=== PATIENT | male | born 1990 | race Caucasian/White ===

== ENCOUNTER 2018-05-19 13:42 | Emergency (ER) | payer SELFPAY ==
[2018-05-19 13:52] VITALS: BP 123/72
--- NOTE | 2018-05-19 15:30 | ER Document Report ---
HPI - HPI Patient complains to provider of: Medication refill Time Seen by Provider: 05/19/18 14:52 Onset: This afternoon Onset/Duration: Sudden Quality of pain: No pain Severity: None Pain Level: 0 Context: Patient is a 19-year-old male who comes emergency room today requesting a refill of his psych medications. Patient states that he had a sudden pop up of a job interview and training for first thing tomorrow morning last all day in [facility] and his psych appointment was for the same day and time so hard to keep his job he needed to cancel in the next available appointment was June 14. He has 2 more days left on his medications. He has no complaints other than that at this time. He has no other medical history. He denies any suicidal or homicidal ideations. Associated Symptoms: None Exacerbated by: Denies Relieved by: Denies Similar symptoms previously: No Recently seen / treated by doctor: No - ROS ROS below otherwise negative: Yes Systems Reviewed and Negative: Yes All other systems reviewed and negative - EENT EENT: DENIES: Sore Throat, Ear Pain, Nasal Drainage-Clear, Nasal Drainage- Purulent, Congestion, Eye problems - NEURO Neurology: DENIES: Headache, Weakness, Vision blurred, Dizzinesss / Vertigo - CARDIOVASCULAR Cardiovascular: DENIES: Chest pain - RESPIRATORY Respiratory: DENIES: Trouble Breathing, Coughing - GASTROINTESTINAL Gastrointestinal: DENIES: Abdominal Pain, Nausea, Patient vomiting, Diarrhea, Constipation, Black / Bloody Stools - URINARY Urinary: DENIES: Dysuria, Urgency, Frequency - REPRODUCTIVE Reproductive: DENIES: :, Postmenopausal, Abnormal bleeding / discharge - MUSCULOSKELETAL Musculoskeletal: DENIES: Extremity pain, Back Pain - DERM Skin Color: Normal, Calvary Skin Problems: None Past Medical History - General Information source: Patient - Social History Smoking Status: Never Smoker Cigarette use (# per day): No Chew tobacco use (# tins/day): No Smoking Education Provided: No Frequency of alcohol use: None Drug Abuse: None Family History: Reviewed & Not Pertinent Patient has suicidal ideation: No Patient has homicidal ideation: No Renal/ Medical History: Denies: Hx Peritoneal Dialysis Psychiatric Medical History: Reports: Hx Bipolar Disorder Past Surgical History: Reports: Hx Abdominal Surgery Vertical Provider Document - CONSTITUTIONAL Agree With Documented VS: Yes Exam Limitations: No Limitations General Appearance: WD/WN, No Apparent Distress - INFECTION CONTROL TRAVEL OUTSIDE OF THE .S. IN LAST 30 DAYS: No - HEENT HEENT: Atraumatic, Normocephalic, PERRLA - NECK Neck: Normal Inspection, Supple - RESPIRATORY Respiratory: Breath Sounds Normal, No Respiratory Distress. negative: Rales, Rhonchi, Wheezing - CARDIOVASCULAR Cardiovascular: Regular Rate - GI/ABDOMEN Gastrointestinal: Abdomen Soft, Abdomen Non-Tender - REPRODUCTIVE Male Genitalia: negative: Normal Inspection, Abnormal Inspection - BACK Back: Normal Inspection - MUSCULOSKELETAL/EXTREMETIES Musculoskeletal/Extremeties: FROM, Non-Tender - NEURO Level of Consciousness: Awake, Alert, Appropriate Motor/Sensory: No Motor Deficit - DERM Integumentary: Warm, Dry, No Rash Course - Re-evaluation Re-evalutation: 05/19/18 15:28 I had mental health results with him and advised me the patient is responsible and that he is trying to better his life by having a job and they had scheduled for his work training in [facility] for tomorrow which was a scheduled appointment for his review and mental health meds. He has rescheduled for June 14 and she has confirmed this for me. So I have no problem in writing patient in the medication to last him until 15 June. He is requesting Lamictal, Cymbalta, gabapentin, and trazodone. - Vital Signs Vital signs: Temp Pulse Resp BP Pulse Ox 98.1 F 74 16 123/72 96 05/19/18 13:51 05/19/18 13:51 05/19/18 13:51 05/19/18 13:51 05/19/18 13:51 Discharge - Discharge Clinical Impression: Medication refill Disposition: HOME, SELF-CARE Additional Instructions: As we discussed you have an appointment set for June 14, 2018 for reevaluation and refill your medication by the mental health. Please keep that appointment. I will refill your medication at this time until the of the month. Should you have any concerns or problems return to ER for recheck. Prescriptions: Duloxetine HCl [Cymbalta] 60 mg PO DAILY #30 capsule. Gabapentin 600 mg PO DAILY #30 tablet Lamotrigine [Lamictal] 100 mg PO DAILY #30 tablet Trazodone HCl [Desyrel] 150 mg PO HSP PRN #30 tablet PRN Reason: Referrals: Mental Health [Provider Group] - Follow up as needed
--- NOTE | 2018-05-19 15:39 | PSYCHOLOGICAL NOTE ---
Psych Note - Psych Note Date seen by psych provider: 05/19/18 Time seen by psych provider: 15:05 - Attending ED PA came to clinician at 1506. Brief evaluation with patient from [id number]. Spoke to attending ED Physician at 1516. Psych Note: Reason for Consult: Medication refill Contact Permissions: None needed at this time Patient is a 27 year old male who presented to the ED today via walk in due to concerns for running out of medications. He stated his outpatient provider is Janina [facility]oney [place]. He reported "I started a new job, I have training in [employer] tomorrow, I was supposed to have follow up at [place] tomorrow at 1000, I called to cancel and reschedule due to the job an they cannot see me until 06/14/18 at 1600." He stated he will run out of medication in two days and Janina told him to go to [facility] ED. Patient was alert and oriented to person, place, time and situation. Mood was euthymic with congruent affect. He denied SI/HI and these were not presenting concerns. He did not appear to be responding to internal stimuli as evidenced by fair eye contact, answering questions appropriately when addressed, staying on topic, and carrying on dialogue conversation. Thought processes were linear and organized. Conversational speech was within normal limits for rate, tone and prosody. Intellectual abilities are estimated to be average. Insight, judgment and impulse control were fair as evidenced by trying to plan for new work training and not running out of prescribed psychiatric medications. Attending CROW came to clinician saying patient wanted med refills and one of his medications were Lamictal. She stated he had an appointment with Janina tomorrow but cancelled it because he has to go out of town tomorrow which is why he needs medication refills. Spoke to Attending ED Physician who said he would talk with patient first and likely provide scripts for already prescribed medications. This clinician shared with Attending ED Physician information from the clinical evaluation/ interaction (outpatient provider, why he cancelled appointment, that he rescheduled but nothing available until 06/14/17 so going to run out of medications). Informed him if he needed anything else from behavioral health to contact them. Diagnosis: 296.80 (F31.9) Unspecified Bipolar and Related Disorder Impression/Plan: Patient is cleared from acute psychiatric services. He denied SI/HI and no observed psychosis. None of these were presenting problems. Patient came to the ED per outpatient provider [employer] recommendation since he had to reschedule medication appointment from tomorrow (05/20/18) at 1000 to 06/14/18 at 1600 (was next available appointment) due to new job training. He did not want to run out of medication (good insight). The Attending Physician was willing to write scripts for patient. Consulted with Dr. Weiss regarding the management and care of patient.
== END 2018-05-19 15:41 | disposition home or self-care (01) ==
LOC: ER 13:42
DX: Z76.0 Encounter for issue of repeat prescription (principal)
CPT/HCPCS: 99283